=== PATIENT | female | born 1985 | race Caucasian/White ===

== ENCOUNTER 2022-03-14 22:26 | Emergency (ER) | payer MEDICAID ==
[~2022-03-14] VITALS: Ht 162.6 cm; Wt 81.6 kg
[2022-03-14 22:48] VITALS: BP_SYST 118
--- NOTE | 2022-03-14 22:53 | NUR ---
Patient triaged and placed in waiting room. VSS and patient appears in no acute distress at this time. Accompanied by self, awaiting available bed, and MD notified of need for MSE. Provided with urine cup for urine sample collection.
[2022-03-14] MEDS ORDERED: NACL 0.9% 1,000 ML IV ONE (23:15)
--- NOTE | 2022-03-15 00:45 | NUR ---
ER at bedside examining patient.
--- NOTE | 2022-03-15 00:56 | NUR ---
# 20 gauge angiocath placed to LAC. Use of asceptic technique. Opsite placed over site. Blood return noted. Blood for lab drawn from site. Flushed with 10 cc of normal saline. No evidence of infiltration noted. Patient tolerated well.
[2022-03-15] MEDS ORDERED: MECLIZINE HCL 25 MG TABLET (ANITVERT) PO ONE (01:00)
[2022-03-15] MEDS ORDERED: MECL-225 PO (01:15)
[2022-03-15 01:27] VITALS: BP_SYST 116
--- NOTE | 2022-03-15 01:28 | NUR ---
Patient given written and verbal discharge instructions and verbalizes understanding. ER MD discussed with patient the results and treatment provided. Patient in stable condition. ID arm band removed. IV catheter removed intact and dressing applied, no active bleeding. Patient educated on pain management and to follow up with PMD. Pain Scale 0/10 Opportunity for questions provided and answered.
== END 2022-03-15 01:27 | disposition home or self-care (01) ==
LOC: SED 22:26
DX: R42 Dizziness and giddiness (principal); Z79.899 Other long term (current) drug therapy
CPT/HCPCS: 99284; 93005; 81025; 70450; 76376; J8597; J7030